=== PATIENT | female | born 1985 | race Caucasian/White ===

== ENCOUNTER 2017-07-27 22:23 | Emergency (ER) | payer OTHER ==
[~2017-07-27] VITALS: Ht 165.1 cm; Wt 59.0 kg
[~2017-07-27 22:23] MED LIST: ABILIFY10 MG; ADDERALL XR 3030 MG PO; BACTRIM DS TAB1 EACH PO; MACROBID 100 M100 M2 PO; PAXIL10 MG; PRISTIQ50 M1 PO; PROPRANOLOL 1010 MG PO; VALIUM5 MG PO; ZOFRAN4 MG PO; ZOLOFT50 M1; birth control
[2017-07-27] MEDS ORDERED: PROZAC 20 MG20 MG (22:35)
[2017-07-27] MEDS ORDERED: KLONOPIN1 MG (22:35)
[2017-07-27 23:21] LABS: ABSOLUTE BASOPHILS 0.1 thou/uL (0.0-0.2); ABSOLUTE EOSINOPHILS 0.7 thou/uL (0.0-0.7); ABSOLUTE LYMPHOCYTES 2.9 thou/uL (0.8-5.3); ABSOLUTE MONOCYTES 0.6 thou/uL (0.0-1.2); ABSOLUTE NEUTROPHILS 4.4 thou/uL (1.6-8.1); EOSINOPHILS 7.9 %; HEMATOCRIT 39.2 % (37.0-47.0); HEMOGLOBIN 13.1 gm/dL (12.0-15.0); LYMPHOCYTES 33.5 %; MCH 29.7 pg (26.0-34.0); MCHC 33.5 g/dL (28.0-37.0); MCV 88.7 fL (80.0-100.0); MONOCYTES 6.6 %; NUCLEATED RBCS 0 /100WBC; PLATELET COUNT* 261 thou/uL (150-400); RBC 4.42 mil/uL (4.20-5.00); RDW-CV 13.2 % (10.5-14.5); WBC 8.6 thou/uL (4.0-11.0)
[2017-07-27 23:52] VITALS: BP 104/70
== END 2017-07-27 23:54 | disposition home or self-care (01) ==
LOC: M.ERS 22:23
PROVIDERS: Emergency Medicine
DX: N92.0 Excessive and frequent menstruation with regular cycle (principal); F32.9 Major depressive disorder, single episode, unspecified; F41.9 Anxiety disorder, unspecified; F90.9 Attention-deficit hyperactivity disorder, unspecified type; F29 Unspecified psychosis not due to a substance or known physiological condition; F17.200 Nicotine dependence, unspecified, uncomplicated; Z88.8 Allergy status to other drugs, medicaments and biological substances

== ENCOUNTER 2017-09-20 15:33 | Emergency (ER) | payer OTHER ==
[~2017-09-20] VITALS: Ht 165.1 cm; Wt 63.0 kg
[~2017-09-20 15:33] MED LIST changes: +KLONOPIN1 MG; +PROZAC 20 MG20 MG
[2017-09-20] MEDS ORDERED: STOOL SOFTENER (15:47)
[2017-09-20] MEDS ORDERED: PROZAC20 MG PO (15:47)
[2017-09-20 15:52] LABS: URINE BILIRUBIN NEGATIVE (Negative); URINE BLOOD NEGATIVE (Negative); URINE CLARITY CLOUDY; URINE COLOR YELLOW; URINE GLUCOSE-RANDOM NEGATIVE (Negative); URINE KETONES NEGATIVE (Negative); URINE LEUKOCYTES-REFLEX NEGATIVE (Negative); URINE NITRITE-REFLEX NEGATIVE (Negative); URINE PROTEIN TRACE (Negative); URINE UROBILINOGEN 0.2 E.U./dl (0.2-1.0)
[2017-09-20 15:54] LABS: AMORPHOUS PHOSPHATES Many /LPF (None Seen); CASTS None Seen /LPF (None Seen); SQUAMOUS >10 Many /LPF (0-3)
[2017-09-20 15:55] LABS: URINE RBC None Seen /HPF (0-2); URINE WBC-REFLEX 0-5 Rare /HPF (0-5)
[2017-09-20 15:59] LABS: ABSOLUTE BASOPHILS 0.1 thou/uL (0.0-0.2); ABSOLUTE EOSINOPHILS 0.6 thou/uL (0.0-0.7); ABSOLUTE MONOCYTES 0.7 thou/uL (0.0-1.2); ABSOLUTE NEUTROPHILS 5.6 thou/uL (1.6-8.1); BASOPHILS 1.1 %; EOSINOPHILS 6.4 %; HEMATOCRIT 41.4 % (37.0-47.0); LYMPHOCYTES 30.1 %; MCH 30.5 pg (26.0-34.0); MCHC 33.8 g/dL (28.0-37.0); MCV 90.1 fL (80.0-100.0); MONOCYTES 7.3 %; MPV 8.6 fl. (7.2-11.1); NUCLEATED RBCS 0 /100WBC; PLATELET COUNT* 244 thou/uL (150-400); POLYS 55.1 %; RBC 4.59 mil/uL (4.20-5.00); RDW-CV 13.7 % (10.5-14.5); WBC 10.1 thou/uL (4.0-11.0)
[2017-09-20 16:16] LABS: CALCIUM 9.2 mg/dL (8.5-10.1); CREATININE 0.8 mg/dL (0.6-1.3); POTASSIUM 3.5 mmol/L (3.5-5.1)
[2017-09-20 16:21] LABS: ALBUMIN 3.5 g/dL (3.4-5.0); TOTAL BILIRUBIN 0.2 mg/dL (<0.1-1.0); TOTAL PROTEIN 7.2 g/dL (6.4-8.2)
[2017-09-20] MEDS ORDERED: PROTONIX 20 MG20 MG PO (17:03)
[2017-09-20 17:11] VITALS: BP 115/74
== END 2017-09-20 17:12 | disposition home or self-care (01) ==
LOC: M.ERS 15:33
PROVIDERS: Nurse Practitioner
DX: K27.9 Peptic ulcer, site unspecified, unspecified as acute or chronic, without hemorrhage or perforation (principal)

== ENCOUNTER 2017-10-23 23:53 | Emergency (ER) | payer OTHER ==
[~2017-10-23] VITALS: Ht 165.1 cm; Wt 66.7 kg
[~2017-10-23 23:53] MED LIST changes: +PROTONIX 20 MG20 MG PO; +PROZAC20 MG PO; +STOOL SOFTENER
[2017-10-24 00:49] LABS: URINE BLOOD NEGATIVE (Negative); URINE CLARITY CLEAR; URINE COLOR YELLOW; URINE GLUCOSE-RANDOM NEGATIVE (Negative); URINE KETONES TRACE (Negative); URINE LEUKOCYTES-REFLEX NEGATIVE (Negative); URINE NITRITE-REFLEX NEGATIVE (Negative); URINE PROTEIN 1+ (Negative); URINE SPECIFIC GRAVITY 1.015 (1.005-1.030)
[2017-10-24 00:51] LABS: URINE BILIRUBIN 1+ (Negative)
[2017-10-24 00:53] LABS: ICTOTEST (BILI CONFIRMATORY) Negative (Negative)
[2017-10-24 01:06] LABS: ABSOLUTE BASOPHILS 0.1 thou/uL (0.0-0.2); ABSOLUTE EOSINOPHILS 0.7 thou/uL (0.0-0.7); ABSOLUTE LYMPHOCYTES 2.4 thou/uL (0.8-5.3); ABSOLUTE MONOCYTES 0.7 thou/uL (0.0-1.2); ABSOLUTE NEUTROPHILS 5.9 thou/uL (1.6-8.1); BASOPHILS 0.9 %; EOSINOPHILS 7.3 %; HEMATOCRIT 41.7 % (37.0-47.0); MCH 30.2 pg (26.0-34.0); MCHC 33.5 g/dL (28.0-37.0); MCV 90.1 fL (80.0-100.0); MONOCYTES 7.6 %; MPV 8.8 fl. (7.2-11.1); NUCLEATED RBCS 0 /100WBC; PLATELET COUNT* 253 thou/uL (150-400); POLYS 60.2 %; RBC 4.62 mil/uL (4.20-5.00); RDW-CV 13.5 % (10.5-14.5); WBC 9.8 thou/uL (4.0-11.0)
[2017-10-24 01:16] LABS: CALCIUM 7.9 mg/dL (8.5-10.1); CREATININE 0.7 mg/dL (0.6-1.3); POTASSIUM 3.7 mmol/L (3.5-5.1)
[2017-10-24 01:21] LABS: ALBUMIN 3.2 g/dL (3.4-5.0); TOTAL BILIRUBIN 0.2 mg/dL (<0.1-1.0); TOTAL PROTEIN 6.5 g/dL (6.4-8.2)
[2017-10-24] MEDS ORDERED: ZOFRAN ODT4 MG PO (03:10)
[2017-10-24] MEDS ORDERED: BENTYL 20 MG TA20 M1 PO (03:10)
[2017-10-24 03:23] VITALS: BP 119/71
== END 2017-10-24 03:26 | disposition home or self-care (01) ==
LOC: M.ERS 23:53
PROVIDERS: Personal Emergency Response Attendant
DX: K52.9 Noninfective gastroenteritis and colitis, unspecified (principal); F32.9 Major depressive disorder, single episode, unspecified; F41.9 Anxiety disorder, unspecified; F90.9 Attention-deficit hyperactivity disorder, unspecified type

== ENCOUNTER → 2018-07-10 | Outpatient (CLI) | payer OTHER ==
[~2018-07-10] MED LIST changes: +BENTYL 20 MG TA20 M1 PO; +ZOFRAN ODT4 MG PO
== END ==
LOC: M.LAB 16:25
DX: K59.9 Functional intestinal disorder, unspecified (principal)

== ENCOUNTER 2019-05-21 11:17 | Inpatient (IN) | payer OTHER ==
[~2019-05-21] VITALS: Ht 165.1 cm; Wt 51.7 kg
[~2019-05-21 11:17] MED LIST changes: -ABILIFY10 MG; +ABILIFY10 MG PO
[2019-05-21 11:28] VITALS: BP 106/69
[2019-05-21 11:48] LABS: ABSOLUTE BASOPHILS 0.1 thou/uL (0.0-0.2); ABSOLUTE EOSINOPHILS 0.4 thou/uL (0.0-0.7); ABSOLUTE LYMPHOCYTES 2.9 thou/uL (0.8-5.3); ABSOLUTE MONOCYTES 0.6 thou/uL (0.0-1.2); ABSOLUTE NEUTROPHILS 3.3 thou/uL (1.6-8.1); BASOPHILS 1.4 %; EOSINOPHILS 5.3 %; HEMATOCRIT 40.7 % (37.0-47.0); HEMOGLOBIN 13.7 gm/dL (12.0-15.0); MCH 30.7 pg (26.0-34.0); MCHC 33.6 g/dL (28.0-37.0); MCV 91.4 fL (80.0-100.0); MONOCYTES 8.4 %; MPV 8.8 fl. (7.2-11.1); NUCLEATED RBCS 0 /100WBC; PLATELET COUNT* 285 thou/uL (150-400); POLYS 44.9 %; RBC 4.45 mil/uL (4.20-5.00); RDW-CV 13.6 % (10.5-14.5); WBC 7.3 thou/uL (4.0-11.0)
[2019-05-21 11:57] LABS: APTT 25.2 Seconds (25.0-31.3); PROTIME 9.8 Seconds (9.20-11.50)
[2019-05-21 11:58] LABS: CALCIUM 8.4 mg/dL (8.5-10.1); CREATININE 0.7 mg/dL (0.6-1.3); POTASSIUM 3.3 mmol/L (3.5-5.1)
[2019-05-21 12:02] LABS: ALBUMIN 3.5 g/dL (3.4-5.0); TOTAL BILIRUBIN 0.3 mg/dL (<0.1-1.0)
[2019-05-21 14:28] VITALS: BP 115/80
[2019-05-21 15:16] VITALS: BP 102/64
[2019-05-21 19:45] VITALS: BP 124/103
[2019-05-22 04:15] LABS: ABSOLUTE BASOPHILS 0.1 thou/uL (0.0-0.2); ABSOLUTE EOSINOPHILS 0.4 thou/uL (0.0-0.7); ABSOLUTE MONOCYTES 0.5 thou/uL (0.0-1.2); ABSOLUTE NEUTROPHILS 2.7 thou/uL (1.6-8.1); BASOPHILS 0.9 %; EOSINOPHILS 6.3 %; HEMATOCRIT 34.5 % (37.0-47.0); LYMPHOCYTES 44.5 %; MCH 30.8 pg (26.0-34.0); MCHC 33.4 g/dL (28.0-37.0); MCV 92.3 fL (80.0-100.0); MONOCYTES 7.9 %; MPV 8.4 fl. (7.2-11.1); NUCLEATED RBCS 0 /100WBC; PLATELET COUNT* 221 thou/uL (150-400); POLYS 40.4 %; RBC 3.74 mil/uL (4.20-5.00); RDW-CV 13.7 % (10.5-14.5); WBC 6.6 thou/uL (4.0-11.0)
[2019-05-22 04:25] LABS: HEMOGLOBIN 11.5 gm/dL (12.0-15.0)
[2019-05-22 04:30] LABS: CALCIUM 7.8 mg/dL (8.5-10.1); CREATININE 0.7 mg/dL (0.6-1.3)
[2019-05-22 04:31] LABS: POTASSIUM 4.8 mmol/L (3.5-5.1)
[2019-05-22 08:31] VITALS: BP 98/53
[2019-05-22 15:15] VITALS: BP 98/53
[2019-05-22] MEDS ORDERED: CIPRO500 M1 PO (15:47)
--- NOTE | 2019-05-22 15:47 | CON ---
[address] [address] CONSULTATION Name: JAGDISHKAILYN Radha Room: [address] [place] .R.#: [id number] Admission: 05/21/19 Attend Phys: Brian Cooper MD Discharge: Date of : 89 Report #: [id number] THIS REPORT FOR: //name// CC: Brian Bradford DO DICTATED BY: Crys Andrew [facility] DATE OF SERVICE: 05/22/2019 Please note at the time of this dictation, the patient was seen and physically examined by myself. REASON FOR CONSULTATION: Rectal bleeding and some abdominal discomfort. HISTORY OF PRESENT ILLNESS: This is a 33-year-old female who presented to the Emergency Room after calling our office and stating that she had had 3 days of some rectal bleeding. She had only noticed the bleeding when she had a bowel movement. She states her bowels have been moving fairly normal. She has been on an every other day to every 2 days, but it was only with wiping and then with the bowel movement, she would notice a little bit of bright red blood in the toilet. She did also have a little bit of abdominal cramping, but nothing significant. No nausea, vomiting, or loss of appetite or fever or chills was noted. ALLERGIES: No known drug allergies. MEDICATIONS: From home included dicyclomine, Zofran, control pills, Abilify, Prozac, and Inderal. PAST MEDICAL HISTORY: Depression, anxiety, ADHD and some psychosis, bipolar, irritable bowel syndrome. PAST SURGICAL HISTORY: She has had her wisdom teeth out and a labial reduction done. FAMILY HISTORY: Negative for any GI or female cancers. The patient has been adopted. SOCIAL HISTORY: Alcohol socially. Denies any tobacco or illegal drug use. REVIEW OF SYSTEMS: A 12-point review of systems is essentially negative except what is [place] [address] CONSULTATION Name: KAILYN DUBON Room: [address] [place] [facility].#: [id number] Admission: 05/21/19 Attend Phys: Brian Cooper MD Discharge: Date of : 89 Report #: [id number] PHYSICAL EXAMINATION: VITAL SIGNS: Temperature 36.7, pulse 68, respirations 18, blood pressure 124/100. HEART: Regular rate and rhythm. LUNGS: Clear. ABDOMEN: Soft, positive bowel sounds in all 4 quadrants with no masses or tenderness noted. LABORATORY DATA: Hemoglobin on admission was 13.7, she is 11.5, white count is 6.6, platelets 221. GFR is 98, BUN is 11, creatinine 0.7. PT is 9.8, INR is 1. CT showed sigmoid and descending stranding and a right ovarian mass. IMPRESSION: 1. Rectal bleeding very mild, none today. 2. Abdominal cramping, resolved. 3. Diverticulitis, mild. 4. Anemia. PLAN: 1. The patient is having no further abdominal pain or rectal bleeding at this time. 2. She has a history of hemorrhoids noted back in 2017, colonoscopy. 3. We will advance her diet to a soft low residue and to continue that when she goes home if she tolerates this, she could go home later today since she is currently pain free and is having no nausea or vomiting and her rectal bleeding has subsided. 4. When the patient goes home, she will need oral antibiotics for an additional 10 days with a repeat outpatient colonoscopy in 6 weeks to evaluate her diverticular disease. 5. Recommendations for the patient to take a stool softener daily to help her go more regularly than every other day or 2 days. Thank you for allowing us to participate in this patient's care. Please do not hesitate to call with any questions in regard to this consult. Agree with above assessment and plan by Crys Andrew. <ELECTRONICALLY SIGNED> By: Flavio Avina MD 05/22/19 [id number] Avina MD /nt
[2019-05-22] MEDS ORDERED: FLAGYL500 M1 PO (15:48)
[2019-05-22 16:06] VITALS: BP 98/53
[2019-05-22 16:45] VITALS: BP 98/53
== END 2019-05-22 16:25 | disposition home or self-care (01) | DRG 379 ==
LOC: M.ERS 11:17 → M.TBA-ER 14:04 → M.ORTHSURG 14:04
PROVIDERS: Family Medicine; ADMIT Internal Medicine
DX: K57.33 Diverticulitis of large intestine without perforation or abscess with bleeding (principal); F32.9 Major depressive disorder, single episode, unspecified; F41.9 Anxiety disorder, unspecified; D64.9 Anemia, unspecified; F17.210 Nicotine dependence, cigarettes, uncomplicated; E27.9 Disorder of adrenal gland, unspecified; Z79.899 Other long term (current) drug therapy